=== PATIENT | female | born 1955 | race Caucasian/White ===

== ENCOUNTER 2016-12-01 17:01 | Emergency (ER) | payer MEDICAID ==
[~2016-12-01] VITALS: Ht 152.4 cm; Wt 79.8 kg
[2016-12-01] MEDS ORDERED: SITA100T PO (17:30)
[2016-12-01] MEDS ORDERED: IBUP-1955 PO (17:30)
[2016-12-01] MEDS ORDERED: METO-302 PO (17:30)
[2016-12-01] MEDS ORDERED: CITA10TA9 PO (17:30)
[2016-12-01] MEDS ORDERED: GABA-534 PO (17:30)
[2016-12-01] MEDS ORDERED: TRAM50TA2 PO (17:30)
[2016-12-01] MEDS ORDERED: FERR325T28 PO (17:30)
[2016-12-01] MEDS ORDERED: METF500T4 PO (17:30)
[2016-12-01] MEDS ORDERED: LETR2.5T PO (17:30)
[2016-12-01] MEDS ORDERED: ONDANSETRON 4 MG/2 ML VIAL IV ONE (18:30)
[2016-12-01] MEDS ORDERED: HYDROMORPHONE 1 MG/1 ML DISP.SYRIN IV ONE (18:30)
[2016-12-01] MEDS ORDERED: HYDROMORPHONE 1 MG/1 ML DISP.SYRIN ONE (18:38)
[2016-12-01] MEDS ORDERED: ONDANSETRON 4 MG/2 ML VIAL ONE (18:38)
[2016-12-01 18:46] LABS: BASOPHILS % (AUTO) 0.3 % (0.0-2.0); EOSINOPHILS # (AUTO) 0.1 K/uL (0.0-0.7); EOSINOPHILS % (AUTO) 0.9 % (0.0-7.0); HEMATOCRIT 33.7 % (37-47); HEMOGLOBIN 11.1 G/DL (12.0-16.0); LYMPHOCYTES # (AUTO) 1.9 K/UL (0.8-4.8); LYMPHOCYTES % (AUTO) 23.3 % (20.5-51.5); MEAN CORPUSCULAR HEMOGLOBIN 30.2 UUG (27.0-31.0); MEAN CORPUSCULAR HGB CONC 33 g/dL (32.0-37.0); MEAN CORPUSCULAR VOLUME 91.7 FL (81.0-99.0); MONOCYTES # (AUTO) 0.6 K/UL (0.1-1.30); MONOCYTES % (AUTO) 7.1 % (0.0-11.0); NEUTROPHILS # (AUTO) 5.4 K/UL (1.8-8.9); NEUTROPHILS % (AUTO) 68.4 % (38.5-71.5); PLATELET COUNT (AUTO) 203 K/UL (150-450); RED BLOOD CELL COUNT(AUTO) 3.67 MIL/UL (4.2-5.4)
[2016-12-01 19:01] LABS: CREATININE 0.6 mg/dL (0.6-1.3); POTASSIUM 3.9 mmol/L (3.5-5.1)
--- NOTE | 2016-12-01 19:04 | NUR ---
RECEIVED PT FROM ENVIRONMENTAL AIDE RN. PT IS AT BEDSIDE, NAD NOTED. VSS. SPEAKING IN FULL SENTENCES. AMBULATORY WITH STEADY GAIT. C/O LEFT ARM PAIN S/P FALL TODAY. X-RAY DONE. PENDING RESULTS. PT VERBALIZED OF FEELING COMFORTABLE. PT ALSO VERBALIZED THAT SHE DOESN'T NEED MEDICATION AT THIS TIME. WCTM PT. WAITING FOR FURTHER PLAN OF CARE
[2016-12-01 19:07] LABS: BILIRUBIN,DIRECT 0.1 mg/dL (0.0-0.2); BILIRUBIN,TOTAL 0.4 mg/dL (0.2-1.0); TOTAL PROTEIN, SERUM 7.4 g/dL (6.4-8.2)
[2016-12-01] MEDS ORDERED: methylPREDNISolone SOD SUCC 125 MG/2 ML VIAL IM ONE (20:45)
--- NOTE | 2016-12-01 20:55 | NUR ---
PT IS AMBULATORY WITH STEADY GAIT. SLING PROVIDED PER MD STREET'S ORDER
--- NOTE | 2016-12-01 20:55 | NUR ---
Patient discharged to home in stable conditon. Written and verbal after care instructions given, along with prescription as ordered by MD. Patient and daughter verbalizes understanding of instructions. No further questions or concerns noted prior on leaving the ED.
[2016-12-01 20:56] VITALS: BP 123/78
== END 2016-12-01 21:02 | disposition home or self-care (01) ==
LOC: ER 17:02
DX: S42.292A Other displaced fracture of upper end of left humerus, initial encounter for closed fracture (principal); R42 Dizziness and giddiness; E11.9 Type 2 diabetes mellitus without complications; Z85.3 Personal history of malignant neoplasm of breast; Z90.710 Acquired absence of both cervix and uterus; W18.30XA Fall on same level, unspecified, initial encounter; Y93.89 Activity, other specified; Y99.8 Other external cause status; Y92.89 Other specified places as the place of occurrence of the external cause
CPT/HCPCS: 36415; 71010; 73030; 80048; 80076; 84484; 85025; 85730; 93005; 96374; 96375; 99285; A4663; J1170; J2405; 70030-TC